=== PATIENT | male | born 1980 | race Caucasian/White ===

== ENCOUNTER 2020-02-14 16:15 | Outpatient (CLI) | payer OTHER, SELFPAY ==
--- NOTE | ~2020-02-14 | XR_ITS ---
XR ribs LT 2V w CXR 2V DATE: 02/14/2020 16:37 INDICATION: Left chest pain. Left pleurodynia. TECHNIQUE: PA and lateral chest. 3 views of the left ribs. COMPARISON: None FINDINGS: Normal heart size. No hilar or mediastinal enlargement. No pulmonary infiltrate or consolid ation, pleural effusion or pulmonary vascular congestion or pneumothorax. No left rib fracture or bone destruction is detected. IMPRESSION: No active cardiopulmonary disease No evidence of left rib fracture or bone destruction Reviewed, dictated and finalized at location B. [employer]
== END 2020-02-14 16:16 ==
PROVIDERS: Visit Provider Family Medicine
DX: R07.81 Pleurodynia (principal)
CPT/HCPCS: 71046; 71100

== ENCOUNTER 2020-02-27 08:33 | Outpatient (CLI) | payer OTHER, SELFPAY ==
--- NOTE | 2020-02-27 12:15 | WPDNEUROLOGY ---
Neurology EEG Report General Information Date of Study: 02/27/20 TEST eeg DIAGNOSIS recurrent syncopal episode rule out the possibility of seizures CONDITION OF RECORDING awake and drowsy with photic stimulation as well EEG NUMBER 21-20 CLINICAL HISTORY patient reported he has had several episodes of choking and coughing and then losing consciousness EEG DESCRIPTION whole record consists of low-voltage admixed with low-voltage 15 to 18 hertz per 2nd beta during wakefulness as well as diffusely during drowsiness admixed with multiple muscle artifacts. very brief periods of symmetrical sleep activity seen during sleep. photic stimulation produced poor drive .hyperventilation not done. Non paroxysmal. non Focal. Nonlateralizing. IMPRESSION No significant abnormalities noted
== END 2020-02-27 08:34 | disposition home or self-care (01) ==
PROVIDERS: PCP Family Medicine; Visit Provider Family Medicine
DX: R55 Syncope and collapse (principal)
CPT/HCPCS: 95816